=== PATIENT | male | born 1950 | race Caucasian/White ===

== ENCOUNTER → 2017-01-25 | Day surgery (SDC) | payer OTHER ==
[~2017-01-25] MED LIST: ACCUPRIL PO; ALDACTONE100 MG PO; ALLOPURINOL300 MG PO; AMARYL1 MG PO; AMIODARONE PO; AMITRIPTYLINE H25 MG PO; CLARITIN5 MG PO; EFFEXOR XR PO; EFFEXOR-XR150 MG PO; FLEXERIL PO; FLEXERIL10 MG PO; GLIMEPIRIDE2 MG PO; GLUCOPHAGE500 M1 PO; GLUCOPHAGE500 MG PO; GLY OXIDE PO; LIPITOR PO; LIPITOR40 MG PO; LOPRESSOR PO; OPANA ER30 MG PO; OXYCONTIN PO; PERCOCET 10/3251 TAB PO; PERCOCET10 PO; PERCOCET7.5 PO; PRAVASTATIN SOD40 MG PO; PRILOSEC PO; STARLIX PO; TOPROL XL50 MG PO; UROCIT K PO; ZYRTEC10 M2 PO
--- NOTE | ~2017-01-25 | OR ---
Unit #: [id number] #: [id number] Patient: OBED CHIRINOS [id number] [address] [address] [id number] MR#: [id number] NAME: OBED CHIRINOS. ROOM: Date of Procedure: 01/25/2017 Admission Date: 01/25/2017 Surgeon: Erik Ziegler M.D. : 1950 Attending Physician: Erik Ziegler M.D. Primary Care Physician: Alejandra Cortez M.D. OPERATIVE REPORT PREOPERATIVE DIAGNOSES Back pain, radiculopathy, post-laminectomy syndrome, degenerative disk disease. POSTOPERATIVE DIAGNOSES Back pain, radiculopathy, post-laminectomy syndrome, degenerative disk disease. PROCEDURE PERFORMED Lumbar epidural steroid injection with intravenous sedation and fluoroscopic guidance for needle localization. INDICATIONS FOR PROCEDURE The patient is a 66-year-old male, who has had worsening back and left greater than right lower extremity pain due to the previously mentioned diagnosis. He was treated medically in the past with p.r.n. epidural steroid injections. Single injection was given him 3 to 8 months of improvement. Last injection was actually done 2 years ago. He had problems getting approval with Workers' comp. Symptoms are again in the same distribution left greater than right lower extremity. DESCRIPTION OF PROCEDURE The patient was placed in a seated position. Standard monitors were applied. 2 mg of Versed were given for sedation and anxiolysis, which were adequate. Vital signs remained stable. Sterile prep and drape then of the lumbar area was performed. The skin at the L5-S1 level was localized with 1% lidocaine. An 18-gauge [employer]tead needle was then advanced via loss of resistance technique and fluoroscopic guidance in toward the epidural space. After confirming proper positioning with fluoroscopy and radiographic contrast, 80 mg of Depo-Medrol and 4 mL of 0.125% bupivacaine were deposited. The patient tolerated the procedure otherwise well and was discharged to the recovery room in stable condition. Dictated by... Erik Ziegler M.D. LHP/modl TD: 01/26/2017 02:02 JOB #: [id number] Unit #: [id number] #: [id number] Patient: OBED CHIRINOS OPERATIVE REPORT Page 1 of 1 X Erik Ziegler MD X PROCEDURE OPERATIVE NOTE
== END | disposition home or self-care (01) ==
LOC: CCSC 09:11
DX: M96.1 Postlaminectomy syndrome, not elsewhere classified (principal); M51.16 Intervertebral disc disorders with radiculopathy, lumbar region; E11.9 Type 2 diabetes mellitus without complications
CPT/HCPCS: 82947; J1040; J2250